=== PATIENT | female | born 1955 | race Caucasian/White ===

== ENCOUNTER 2020-03-01 10:49 | Emergency (ER) | payer MEDICAID, MEDICARE ==
[~2020-03-01] VITALS: Ht 170.2 cm; Wt 59.1 kg
[2020-03-01] MEDS ORDERED: CALC-1038 PO (10:56)
[2020-03-01] MEDS ORDERED: BENA5TAB26 PO (10:56)
[2020-03-01] MEDS ORDERED: LEVO88TA4 PO (10:56)
[2020-03-01] MEDS ORDERED: INSU100V12 SQ (10:57)
[2020-03-01] MEDS ORDERED: INSU100V SQ (10:57)
[2020-03-01] MEDS ORDERED: CHOL500043 PO (10:59)
[2020-03-01] MEDS ORDERED: SODIUM CHLORIDE 0.9% 100 ML ONE (11:01)
[2020-03-01] MEDS ORDERED: IOVERSOL 320 MG/ML 100 ML VIAL ONE (11:01)
[2020-03-01] MEDS ORDERED: ONDANSETRON HCL 4 MG/2 ML VIAL IVP ONE (11:30)
[2020-03-01] MEDS ORDERED: SODIUM CHLORIDE 0.9% 1,000 ML IV ONE (11:30)
[2020-03-01 12:16] LABS: BASOPHILS % (AUTO) 0.6 % (0.0-2.0); EOSINOPHILS % (AUTO) 0.8 % (1.0-6.0); HEMATOCRIT 41.8 % (36-46); HEMOGLOBIN 13.8 g/dL (12.0-16.0); LYMPHOCYTES % (AUTO) 23.6 % (22.0-44.0); MEAN CORPUSCULAR HGB CONC 33.1 G/dL (31.0-37.0); MEAN CORPUSCULAR VOLUME 91 fL (80-100); MONOCYTES # (AUTO) 0.3 K/uL (0.1-1.0); MONOCYTES % (AUTO) 6.9 % (2.0-9.0); NEUTROPHILS # (AUTO) 2.7 K/uL (1.8-7.7); NEUTROPHILS % (AUTO) 68.1 % (40.0-70.0); PLATELET COUNT (AUTO) 254 K/uL (150-450); RED CELL DISTRIBUTION WIDTH 12.4 % (11.5-14.5)
[2020-03-01 12:26] LABS: ANION GAP 8 mmol/L (8-16); CALCIUM, TOTAL 8.7 mg/dL (8.8-10.5); CARBON DIOXIDE 29 mmol/L (22-29); CHLORIDE 92 mmol/L (98-107); CREATININE 0.74 mg/dL (0.60-1.30); GLOMERULAR FILTR. RATE CALC > 60 mL/min (>60); GLUCOSE,RANDOM 224 mg/dL (70-110); SODIUM SERUM 129 mmol/L (136-145); UREA NITROGEN, BLOOD 22 mg/dL (7-18)
[2020-03-01 12:27] LABS: PROTHROMBIN TIME 10.7 SEC (9.4-11.6)
[2020-03-01 12:32] LABS: ALANINE AMINOTRANSFERASE 22 U/L (12-78); ALBUMIN 3.6 g/dL (3.4-5.0); ALKALINE PHOSPHATASE 37 U/L (46-116); ASPARTATE AMINOTRANSFERASE 20 U/L (15-37); BILIRUBIN,TOTAL 0.4 mg/dL (0.1-1.0); LIPASE 111 U/L (73-393); TOTAL PROTEIN, SERUM 6.9 g/dL (6.4-8.2)
[2020-03-01 12:56] LABS: APPEARANCE,URINE CLEAR (CLEAR); BILIRUBIN,URINE NEGATIVE (NEGATIVE); GLUCOSE, URINE (UA) NEGATIVE (NEGATIVE); KETONES,URINE NEGATIVE (NEGATIVE); LEUKOCYTE ESTERASE ,URINE NEGATIVE (NEGATIVE); NITRATE,URINE NEGATIVE (NEGATIVE); OCCULT BLOOD,URINE NEGATIVE (NEGATIVE); PROTEIN,URINE NEGATIVE (NEGATIVE); UROBILINOGEN,URINE 0.2 mg/dL (<=1.0)
[2020-03-01 14:36] VITALS: BP 154/91
== END 2020-03-01 15:06 | disposition home or self-care (01) ==
LOC: EMS 10:50
DX: K59.00 Constipation, unspecified (principal); R11.2 Nausea with vomiting, unspecified; E10.9 Type 1 diabetes mellitus without complications; E78.00 Pure hypercholesterolemia, unspecified; I10 Essential (primary) hypertension; Z90.710 Acquired absence of both cervix and uterus; Z79.4 Long term (current) use of insulin
CPT/HCPCS: 36415; 71045; 74177; 80053; 81003; 82962; 83690; 84484; 85025; 85610; 93005; 96361; 96374; 99285; J2405; J7030; J7050; Q9967

== ENCOUNTER 2022-06-25 10:34 | Emergency (ER) | payer MEDICARE, OTHER ==
[~2022-06-25] VITALS: Ht 162.6 cm; Wt 50.0 kg
[~2022-06-25 10:34] MED LIST: BENA40TA92 PO; CALC-1038 PO; CHOL500043 PO; CITA-144 PO; CLON0.2T2 PO; EZET10TA57 PO; INSLAN SQ; INSU100C6 SQ; LEVO88TA7 PO; LORA-999 PO
[2022-06-25] MEDS ORDERED: DIVA-80 PO (10:58)
[2022-06-25] MEDS ORDERED: INSU100V37 SQ (10:58)
[2022-06-25] MEDS ORDERED: RISP1TAB48 PO (10:58)
[2022-06-25] MEDS ORDERED: DIVA-85 PO (10:58)
[2022-06-25] MEDS ORDERED: CHL25 PO (10:58)
[2022-06-25] MEDS ORDERED: LEVO100 PO (10:58)
[2022-06-25] MEDS ORDERED: CHOL25TA4 PO (10:58)
[2022-06-25] MEDS ORDERED: SODIUM CHLORIDE 0.9% 1,000 ML IV ONE (11:00)
[2022-06-25 12:35] LABS: BASOPHILS % (AUTO) 0.2 % (0.0-2.0); EOSINOPHILS % (AUTO) 0 % (1.0-6.0); HEMATOCRIT 38.2 % (36-46); HEMOGLOBIN 13.2 g/dL (12.0-16.0); LYMPHOCYTES # (AUTO) 0.2 K/uL (1.0-4.8); LYMPHOCYTES % (AUTO) 2.4 % (22.0-44.0); MEAN CORPUSCULAR HEMOGLOBIN 29.8 pg (26.0-34.0); MEAN CORPUSCULAR HGB CONC 34.5 G/dL (31.0-37.0); MEAN CORPUSCULAR VOLUME 86 fL (80-100); MONOCYTES % (AUTO) 11.5 % (2.0-9.0); NEUTROPHILS # (AUTO) 7.1 K/uL (1.8-7.7); PLATELET COUNT (AUTO) 159 K/uL (150-450); RED BLOOD CELL COUNT(AUTO) 4.43 MIL/uL (4.00-5.20); RED CELL DISTRIBUTION WIDTH 12.4 % (11.5-14.5)
[2022-06-25 12:39] LABS: NEUTROPHILS % (AUTO) 85.9 % (40.0-70.0)
[2022-06-25 12:47] LABS: ANION GAP 10 mmol/L (8-16); CALCIUM, TOTAL 8.4 mg/dL (8.8-10.5); CARBON DIOXIDE 30 mmol/L (22-29); CHLORIDE 94 mmol/L (98-107); CREATININE 0.83 mg/dL (0.60-1.30); GLUCOSE,RANDOM 257 mg/dL (70-110); POTASSIUM 3.9 mmol/L (3.5-5.1); SODIUM SERUM 134 mmol/L (136-145); UREA NITROGEN, BLOOD 19 mg/dL (7-18)
[2022-06-25 12:48] LABS: GLOMERULAR FILTR. RATE CALC > 60 mL/min (>60)
[2022-06-25 12:50] LABS: PROTHROMBIN TIME 10.4 SEC (9.4-11.6)
[2022-06-25 12:59] LABS: ALANINE AMINOTRANSFERASE 13 U/L (12-78); ALBUMIN 3.1 g/dL (3.4-5.0); ALKALINE PHOSPHATASE 52 U/L (46-116); ASPARTATE AMINOTRANSFERASE 13 U/L (15-37); BILIRUBIN,TOTAL 0.4 mg/dL (0.1-1.0); CREATINE KINASE, TOTAL ONLY 56 U/L (26-192); TOTAL PROTEIN, SERUM 6.7 g/dL (6.4-8.2)
[2022-06-25 13:00] LABS: B-TYPE NATRIURETIC PEPTIDE 147 pg/mL (0-100)
[2022-06-25 17:37] LABS: GLUCOSE,POINT OF CARE 251 MG/DL (70-110)
[2022-06-25] MEDS ORDERED: SODIUM CHLORIDE 0.9% 100 ML ONE (19:02)
[2022-06-25] MEDS ORDERED: IOHEXOL 350 MG/ML 100 ML VIAL ONE (19:02)
[2022-06-25 20:03] VITALS: BP 133/76
== END 2022-06-26 06:32 | disposition home or self-care (01) ==
LOC: EMS 10:34
DX: R07.89 Other chest pain (principal); E11.65 Type 2 diabetes mellitus with hyperglycemia; F25.9 Schizoaffective disorder, unspecified; I10 Essential (primary) hypertension; E03.9 Hypothyroidism, unspecified; E11.9 Type 2 diabetes mellitus without complications; E78.00 Pure hypercholesterolemia, unspecified; Z79.899 Other long term (current) drug therapy
CPT/HCPCS: 99285; 96360; 71275; 71045; 80053; 82550; 82962; 83880; 84484; 85025; 85379; 85610; 85730; 36415; 74019; 93005; Q9967; J7050

== ENCOUNTER 2022-11-29 13:40 | Inpatient (IN) | payer MEDICARE, OTHER ==
[~2022-11-29] VITALS: Ht 170.2 cm; Wt 65.6 kg
[~2022-11-29 13:40] MED LIST changes: +CHL25 PO; +CHOL25TA4 PO; -CHOL500043 PO; -CITA-144 PO; +DIVA-80 PO; +DIVA-85 PO; -INSLAN SQ; +INSU100V37 SQ; +LEVO100 PO; -LEVO88TA7 PO; -LORA-999 PO; +RISP1TAB48 PO
[2022-11-29 15:17] LABS: PROTHROMBIN TIME 10.9 SEC (9.4-11.6)
[2022-11-29 15:26] LABS: BASOPHILS % (AUTO) 0.4 % (0.0-2.0); EOSINOPHILS % (AUTO) 0.1 % (1.0-6.0); HEMATOCRIT 44.7 % (36-46); LYMPHOCYTES # (AUTO) 0.8 K/uL (1.0-4.8); LYMPHOCYTES % (AUTO) 10.8 % (22.0-44.0); MEAN CORPUSCULAR HGB CONC 33.5 G/dL (31.0-37.0); MEAN CORPUSCULAR VOLUME 90 fL (80-100); MONOCYTES % (AUTO) 12.5 % (2.0-9.0); NEUTROPHILS # (AUTO) 5.9 K/uL (1.8-7.7); NEUTROPHILS % (AUTO) 76.2 % (40.0-70.0); PLATELET COUNT (AUTO) 138 K/uL (150-450); RED BLOOD CELL COUNT(AUTO) 4.99 MIL/uL (4.00-5.20); RED CELL DISTRIBUTION WIDTH 13.5 % (11.5-14.5)
[2022-11-29 15:47] LABS: ALBUMIN 3.6 g/dL (3.4-5.0); BILIRUBIN,TOTAL 0.5 mg/dL (0.1-1.0); CALCIUM, TOTAL 9.1 mg/dL (8.8-10.5); CREATININE 1.1 mg/dL (0.60-1.30); TOTAL PROTEIN, SERUM 7.8 g/dL (6.4-8.2)
[2022-11-29 15:51] LABS: POTASSIUM 2.9 mmol/L (3.5-5.1)
[2022-11-29] MEDS ORDERED: SODIUM CHLORIDE 0.9% 1,000 ML IV ONE ×2 (16:00→16:30)
[2022-11-29] MEDS ORDERED: POTASSIUM CHLORIDE 20 MEQ ER TABLET PO ONE (16:00)
[2022-11-29 16:01] LABS: APPEARANCE,URINE CLEAR (CLEAR); BILIRUBIN,URINE NEGATIVE (NEGATIVE); GLUCOSE, URINE (UA) >=1000 mg/dL (NEGATIVE); KETONES,URINE 40-60 mg/dL (NEGATIVE); LEUKOCYTE ESTERASE ,URINE NEGATIVE (NEGATIVE); NITRATE,URINE NEGATIVE (NEGATIVE); OCCULT BLOOD,URINE NEGATIVE (NEGATIVE); PH,URINE 6.5 (5.0-8.0); PROTEIN,URINE NEGATIVE (NEGATIVE); SPECIFIC GRAVITIY, URINE 1.016 (1.003-1.030); UROBILINOGEN,URINE <=1.0 mg/dL (<=1.0)
[2022-11-29 16:11] LABS: BACTERIA,URINE None Seen /HPF (None Seen); RBC,URINE 0-2 /HPF (0-2); SQUAMOUS EPITHELIAL CELL,UR Few /LPF (None Seen); WBC,URINE 0-2 /HPF (0-5)
[2022-11-29] MEDS ORDERED: HYDROCODONE/ACETAMINOPHEN 5-325 MG TABLET PO PRN (16:30)
[2022-11-29] MEDS ORDERED: ACETAMINOPHEN 325 MG TABLET PO PRN ×2 (16:30)
[2022-11-29] MEDS ORDERED: BISACODYL 10 MG RECTAL RECTAL SUPPOSITORY PR PRN (16:30)
[2022-11-29] MEDS ORDERED: MAGNESIUM SULFATE 2 GM/WATER 50 ML IV PRN (16:30)
[2022-11-29] MEDS ORDERED: POTASSIUM CHL 10 MEQ/WATER 50 ML IV PRN (16:30)
[2022-11-29] MEDS ORDERED: MAGNESIUM SULFATE 4 GM/WATER 100 ML IV PRN (16:30)
[2022-11-29] MEDS ORDERED: MAGNESIUM HYDROXIDE SUSPENSION 30 ML UDCUP PO PRN (16:30)
[2022-11-29] MEDS ORDERED: ONDANSETRON HCL 4 MG/2 ML VIAL IVP PRN (16:30)
[2022-11-29] MEDS ORDERED: MORPHINE SULFATE 2 MG/ML SYRINGE IVP PRN (16:30)
[2022-11-29] MEDS ORDERED: ZOLPIDEM TARTRATE 5 MG TABLET PO PRN (16:30)
[2022-11-29] MEDS ORDERED: MAGNESIUM OXIDE 400 MG TABLET PO PRN (16:30)
[2022-11-29] MEDS ORDERED: POTASSIUM CHLORIDE 20 MEQ ER TABLET PO PRN (16:30)
[2022-11-29] MEDS ORDERED: CHLO25TA3 PO (16:40)
[2022-11-29] MEDS ORDERED: CALC-916 PO (16:40)
[2022-11-29] MEDS ORDERED: DEXTROSE 50%-WATER 25 GM/50 ML SYRINGE IVP PRN (16:45)
[2022-11-29 16:57] LABS: COVID AG,FIA SOURCE NASOPHARYNGEAL
[2022-11-29] MEDS: DOCUSATE SODIUM 100 MG CAPSULE PO SCH (21:00)
[2022-11-29 21:20] VITALS: BP 150/90
[2022-11-29] MEDS: CloNIDine HCL 0.2 MG TABLET PO SCH (21:37)
[2022-11-29] MEDS: RisperiDONE 1 MG TABLET PO SCH (21:37)
[2022-11-29] MEDS: INSULIN LISPRO 100 UNITS/ML SQ PRN (21:38)
[2022-11-29] MEDS ORDERED: PNEUMOCOCCAL VACCINE POLYVALENT 0.5 ML VIAL [PPSV23] IM. ONE (23:00)
[2022-11-30 00:16] LABS: GLUCOMETER DEV NAME(LOC) 5S.2B; GLUCOSE,POINT OF CARE 292 MG/DL (70-110)
[2022-11-30] MEDS: HEPARIN SODIUM,PORCINE 5,000 UNITS/ML VIAL SQ SCH ×4 (00:52→23:47)
[2022-11-30 01:05] VITALS: BP 126/80
[2022-11-30 04:12] VITALS: BP 135/67
[2022-11-30] MEDS: INSULIN LISPRO 100 UNITS/ML SQ PRN ×4 (06:25→20:52)
[2022-11-30 06:35] LABS: CALCIUM, TOTAL 8.8 mg/dL (8.8-10.5); CREATININE 1.06 mg/dL (0.60-1.30); POTASSIUM 4.3 mmol/L (3.5-5.1)
[2022-11-30 07:03] LABS: EOSINOPHILS % (AUTO) 0.1 % (1.0-6.0); HEMATOCRIT 44.6 % (36-46); HEMOGLOBIN 15.2 g/dL (12.0-16.0); LYMPHOCYTES # (AUTO) 0.2 K/uL (1.0-4.8); LYMPHOCYTES % (AUTO) 1.7 % (22.0-44.0); MEAN CORPUSCULAR VOLUME 88 fL (80-100); MONOCYTES # (AUTO) 0.8 K/uL (0.1-1.0); MONOCYTES % (AUTO) 8.2 % (2.0-9.0); NEUTROPHILS # (AUTO) 9.2 K/uL (1.8-7.7); PLATELET COUNT (AUTO) 158 K/uL (150-450); RED BLOOD CELL COUNT(AUTO) 5.05 MIL/uL (4.00-5.20); RED CELL DISTRIBUTION WIDTH 13.5 % (11.5-14.5)
[2022-11-30] MEDS: LEVOTHYROXINE SODIUM 100 MCG TABLET PO SCH (07:12)
[2022-11-30 07:34] VITALS: BP 107/71
[2022-11-30] MEDS: CALCIUM CARBONATE 500 MG TABLET PO SCH (08:50)
[2022-11-30] MEDS: PANTOPRAZOLE SODIUM 40 MG DR TABLET PO SCH (08:51)
[2022-11-30] MEDS: DOCUSATE SODIUM 100 MG CAPSULE PO SCH ×2 (08:52→21:00)
[2022-11-30] MEDS: CloNIDine HCL 0.2 MG TABLET PO SCH ×3 (08:52→20:52)
[2022-11-30] MEDS: EZETIMIBE 10 MG TABLET PO SCH (08:52)
[2022-11-30] MEDS: CHOLECALCIFEROL (VIT D3) 1,000 UNITS [25 MCG] TABLET PO SCH (08:53)
[2022-11-30] MEDS: DIVALPROEX SODIUM 250 MG ER TABLET PO SCH (08:59)
[2022-11-30] MEDS ORDERED: SODIUM CHLORIDE 0.9% 500 ML IV ONE (10:15)
[2022-11-30 11:15] VITALS: BP 117/54
[2022-11-30 11:53] LABS: MAGNESIUM 1.5 mg/dL (1.80-2.40)
[2022-11-30] MEDS: DIVALPROEX SODIUM 500 MG ER TABLET PO SCH (12:13)
[2022-11-30 14:48] VITALS: BP 121/88
[2022-11-30 20:02] VITALS: BP 151/52
[2022-11-30 20:41] LABS: GLUCOMETER DEV NAME(LOC) 5N.1C; GLUCOSE,POINT OF CARE 232 MG/DL (70-110)
[2022-11-30] MEDS: RisperiDONE 1 MG TABLET PO SCH (20:52)
[2022-11-30 20:57] LABS: GLUCOMETER DEV NAME(LOC) 5S.1B; GLUCOSE,POINT OF CARE 238 MG/DL (70-110)
[2022-11-30 20:57] LABS: GLUCOMETER DEV NAME(LOC) 5S.1B; GLUCOSE,POINT OF CARE 341 MG/DL (70-110)
[2022-12-01] VITALS (8 sets, daily range): BP systolic 105–148; BP diastolic 47–77
[2022-12-01] MEDS: INSULIN LISPRO 100 UNITS/ML SQ PRN ×4 (06:11→20:08)
[2022-12-01] MEDS: LEVOTHYROXINE SODIUM 100 MCG TABLET PO SCH (06:11)
[2022-12-01 07:05] LABS: BASOPHILS % (AUTO) 0.3 % (0.0-2.0); EOSINOPHILS % (AUTO) 0 % (1.0-6.0); HEMATOCRIT 38.7 % (36-46); HEMOGLOBIN 13.2 g/dL (12.0-16.0); LYMPHOCYTES # (AUTO) 0.6 K/uL (1.0-4.8); LYMPHOCYTES % (AUTO) 6.1 % (22.0-44.0); MEAN CORPUSCULAR HEMOGLOBIN 30.3 pg (26.0-34.0); MEAN CORPUSCULAR HGB CONC 34.1 G/dL (31.0-37.0); MEAN CORPUSCULAR VOLUME 89 fL (80-100); MONOCYTES # (AUTO) 1.6 K/uL (0.1-1.0); MONOCYTES % (AUTO) 16.4 % (2.0-9.0); NEUTROPHILS # (AUTO) 7.4 K/uL (1.8-7.7); NEUTROPHILS % (AUTO) 77.2 % (40.0-70.0); PLATELET COUNT (AUTO) 153 K/uL (150-450); RED BLOOD CELL COUNT(AUTO) 4.35 MIL/uL (4.00-5.20); RED CELL DISTRIBUTION WIDTH 14.2 % (11.5-14.5)
[2022-12-01 07:19] LABS: CALCIUM, TOTAL 8.2 mg/dL (8.8-10.5); CREATININE 1.11 mg/dL (0.60-1.30); MAGNESIUM 1.9 mg/dL (1.80-2.40); POTASSIUM 3.8 mmol/L (3.5-5.1)
[2022-12-01] MEDS: DOCUSATE SODIUM 100 MG CAPSULE PO SCH ×2 (09:00→20:07)
[2022-12-01] MEDS: CloNIDine HCL 0.2 MG TABLET PO SCH ×2 (09:00→20:07)
[2022-12-01] MEDS: HEPARIN SODIUM,PORCINE 5,000 UNITS/ML VIAL SQ SCH ×2 (09:06→17:16)
[2022-12-01] MEDS: DIVALPROEX SODIUM 250 MG ER TABLET PO SCH (09:06)
[2022-12-01] MEDS: CALCIUM CARBONATE 500 MG TABLET PO SCH (09:07)
[2022-12-01] MEDS: EZETIMIBE 10 MG TABLET PO SCH (09:07)
[2022-12-01] MEDS: CHOLECALCIFEROL (VIT D3) 1,000 UNITS [25 MCG] TABLET PO SCH (09:08)
[2022-12-01] MEDS: PANTOPRAZOLE SODIUM 40 MG DR TABLET PO SCH (09:10)
[2022-12-01] MEDS ORDERED: SODIUM CHLORIDE 0.9% 1,000 ML IV ONE (10:15)
[2022-12-01 10:51] LABS: THYROID STIMULATING HORMONE 0.91 uIU/mL (0.36-3.74)
[2022-12-01 11:11] LABS: GLUCOMETER DEV NAME(LOC) 5S.1B; GLUCOSE,POINT OF CARE 303 MG/DL (70-110)
[2022-12-01 12:31] LABS: GLUCOMETER DEV NAME(LOC) 5S.1B; GLUCOSE,POINT OF CARE 326 MG/DL (70-110)
[2022-12-01] MEDS: DIVALPROEX SODIUM 500 MG ER TABLET PO SCH (13:46)
[2022-12-01] MEDS: MetFORMIN HCL 500 MG TABLET PO SCH (17:16)
[2022-12-01 19:56] LABS: GLUCOMETER DEV NAME(LOC) 5S.1B; GLUCOSE,POINT OF CARE 264 MG/DL (70-110)
[2022-12-01] MEDS: RisperiDONE 1 MG TABLET PO SCH (20:07)
[2022-12-02] VITALS: BP 139/79
[2022-12-02] MEDS: HEPARIN SODIUM,PORCINE 5,000 UNITS/ML VIAL SQ SCH ×4 (00:23→23:30)
[2022-12-02 04:41] VITALS: BP 136/86
[2022-12-02] MEDS: LEVOTHYROXINE SODIUM 100 MCG TABLET PO SCH (06:11)
[2022-12-02 06:15] LABS: BASOPHILS % (AUTO) 0.2 % (0.0-2.0); EOSINOPHILS % (AUTO) 0.1 % (1.0-6.0); HEMATOCRIT 34.4 % (36-46); HEMOGLOBIN 11.9 g/dL (12.0-16.0); LYMPHOCYTES # (AUTO) 1.1 K/uL (1.0-4.8); LYMPHOCYTES % (AUTO) 13.3 % (22.0-44.0); MEAN CORPUSCULAR HEMOGLOBIN 30.7 pg (26.0-34.0); MEAN CORPUSCULAR HGB CONC 34.5 G/dL (31.0-37.0); MEAN CORPUSCULAR VOLUME 89 fL (80-100); MONOCYTES # (AUTO) 1.5 K/uL (0.1-1.0); MONOCYTES % (AUTO) 18.5 % (2.0-9.0); NEUTROPHILS # (AUTO) 5.4 K/uL (1.8-7.7); NEUTROPHILS % (AUTO) 67.9 % (40.0-70.0); PLATELET COUNT (AUTO) 141 K/uL (150-450); RED BLOOD CELL COUNT(AUTO) 3.87 MIL/uL (4.00-5.20); RED CELL DISTRIBUTION WIDTH 13.9 % (11.5-14.5)
[2022-12-02] MEDS: INSULIN LISPRO 100 UNITS/ML SQ PRN ×4 (06:20→20:39)
[2022-12-02 07:07] LABS: CALCIUM, TOTAL 7.8 mg/dL (8.8-10.5); CREATININE 1.08 mg/dL (0.60-1.30); POTASSIUM 3.5 mmol/L (3.5-5.1)
[2022-12-02 08:03] VITALS: BP 126/67
[2022-12-02 08:18] LABS: PHOSPHORUS 2.1 mg/dL (2.5-4.9)
[2022-12-02 09:01] LABS: GLUCOMETER DEV NAME(LOC) 5N.1C; GLUCOSE,POINT OF CARE 213 MG/DL (70-110)
[2022-12-02] MEDS: EZETIMIBE 10 MG TABLET PO SCH (09:58)
[2022-12-02] MEDS: CHOLECALCIFEROL (VIT D3) 1,000 UNITS [25 MCG] TABLET PO SCH (09:58)
[2022-12-02] MEDS: CALCIUM CARBONATE 500 MG TABLET PO SCH (09:58)
[2022-12-02] MEDS: MetFORMIN HCL 500 MG TABLET PO SCH ×2 (09:58→17:49)
[2022-12-02] MEDS: CloNIDine HCL 0.2 MG TABLET PO SCH ×2 (09:59→20:32)
[2022-12-02] MEDS: PANTOPRAZOLE SODIUM 40 MG DR TABLET PO SCH (09:59)
[2022-12-02] MEDS: DOCUSATE SODIUM 100 MG CAPSULE PO SCH ×2 (09:59→20:32)
[2022-12-02] MEDS: DIVALPROEX SODIUM 250 MG ER TABLET PO SCH (09:59)
[2022-12-02 10:53] VITALS: BP 135/71
[2022-12-02] MEDS: DIVALPROEX SODIUM 500 MG ER TABLET PO SCH (12:53)
[2022-12-02 15:12] VITALS: BP 119/69
[2022-12-02 20:13] VITALS: BP 136/74
[2022-12-02] MEDS: RisperiDONE 1 MG TABLET PO SCH (20:32)
[2022-12-03] VITALS (8 sets, daily range): BP systolic 120–148; BP diastolic 56–97
[2022-12-03] MEDS: LEVOTHYROXINE SODIUM 100 MCG TABLET PO SCH (06:26)
[2022-12-03] MEDS: INSULIN LISPRO 100 UNITS/ML SQ PRN ×4 (06:29→20:04)
[2022-12-03] MEDS: DOCUSATE SODIUM 100 MG CAPSULE PO SCH ×2 (09:00→20:03)
[2022-12-03] MEDS: HEPARIN SODIUM,PORCINE 5,000 UNITS/ML VIAL SQ SCH ×2 (09:38→17:58)
[2022-12-03] MEDS: EZETIMIBE 10 MG TABLET PO SCH (09:38)
[2022-12-03] MEDS: CALCIUM CARBONATE 500 MG TABLET PO SCH (09:38)
[2022-12-03] MEDS: PANTOPRAZOLE SODIUM 40 MG DR TABLET PO SCH (09:38)
[2022-12-03] MEDS: DIVALPROEX SODIUM 250 MG ER TABLET PO SCH (09:39)
[2022-12-03] MEDS: MetFORMIN HCL 500 MG TABLET PO SCH ×2 (09:39→17:58)
[2022-12-03] MEDS: CloNIDine HCL 0.2 MG TABLET PO SCH ×2 (09:39→20:03)
[2022-12-03] MEDS: CARVEDILOL 6.25 MG TABLET PO SCH ×2 (09:39→20:03)
[2022-12-03] MEDS: CHOLECALCIFEROL (VIT D3) 1,000 UNITS [25 MCG] TABLET PO SCH (09:39)
[2022-12-03] MEDS: DIVALPROEX SODIUM 500 MG ER TABLET PO SCH (12:00)
[2022-12-03 13:06] LABS: GLUCOMETER DEV NAME(LOC) 5S.1B; GLUCOSE,POINT OF CARE 324 MG/DL (70-110)
[2022-12-03] MEDS: RisperiDONE 1 MG TABLET PO SCH (20:03)
[2022-12-03 20:17] LABS: GLUCOMETER DEV NAME(LOC) 5N.1C; GLUCOSE,POINT OF CARE 308 MG/DL (70-110)
[2022-12-03 20:17] LABS: GLUCOMETER DEV NAME(LOC) 5N.1C; GLUCOSE,POINT OF CARE 283 MG/DL (70-110)
[2022-12-03 20:17] LABS: GLUCOMETER DEV NAME(LOC) 5N.1C; GLUCOSE,POINT OF CARE 209 MG/DL (70-110)
[2022-12-03 20:17] LABS: GLUCOMETER DEV NAME(LOC) 5N.1C; GLUCOSE,POINT OF CARE 299 MG/DL (70-110)
[2022-12-04] MEDS: HEPARIN SODIUM,PORCINE 5,000 UNITS/ML VIAL SQ SCH ×3 (00:17→16:06)
[2022-12-04 01:22] LABS: GLUCOMETER DEV NAME(LOC) 5S.1B; GLUCOSE,POINT OF CARE 230 MG/DL (70-110)
[2022-12-04 04:05] VITALS: BP 135/75
[2022-12-04] MEDS: INSULIN LISPRO 100 UNITS/ML SQ PRN ×4 (06:18→21:04)
[2022-12-04 06:36] LABS: GLUCOMETER DEV NAME(LOC) 5N.1C; GLUCOSE,POINT OF CARE 268 MG/DL (70-110)
[2022-12-04] MEDS: LEVOTHYROXINE SODIUM 75 MCG TABLET PO SCH (07:07)
[2022-12-04 08:08] VITALS: BP 141/87
[2022-12-04] MEDS: EZETIMIBE 10 MG TABLET PO SCH (09:50)
[2022-12-04] MEDS: CloNIDine HCL 0.2 MG TABLET PO SCH ×2 (09:50→21:05)
[2022-12-04] MEDS: CALCIUM CARBONATE 500 MG TABLET PO SCH (09:51)
[2022-12-04] MEDS: PANTOPRAZOLE SODIUM 40 MG DR TABLET PO SCH (09:51)
[2022-12-04] MEDS: DIVALPROEX SODIUM 500 MG ER TABLET PO SCH (09:51)
[2022-12-04] MEDS: CHOLECALCIFEROL (VIT D3) 1,000 UNITS [25 MCG] TABLET PO SCH (09:52)
[2022-12-04] MEDS: DOCUSATE SODIUM 100 MG CAPSULE PO SCH ×2 (09:52→21:05)
[2022-12-04] MEDS: MetFORMIN HCL 500 MG TABLET PO SCH ×2 (09:52→18:28)
[2022-12-04] MEDS: CARVEDILOL 12.5 MG TABLET PO SCH ×2 (09:53→21:05)
[2022-12-04] MEDS: DIVALPROEX SODIUM 250 MG ER TABLET PO SCH (09:54)
[2022-12-04 11:18] VITALS: BP 140/73
[2022-12-04 14:45] VITALS: BP 139/75
[2022-12-04] MEDS: GlipiZIDE 5 MG TABLET PO SCH (18:27)
[2022-12-04 21:03] VITALS: BP 172/97
[2022-12-04] MEDS: RisperiDONE 1 MG TABLET PO SCH (21:05)
[2022-12-04 21:17] LABS: GLUCOMETER DEV NAME(LOC) 5N.1C; GLUCOSE,POINT OF CARE 167 MG/DL (70-110)
[2022-12-05 02:39] VITALS: BP 138/65
[2022-12-05 05:07] VITALS: BP 165/78
[2022-12-05 05:27] LABS: GLUCOMETER DEV NAME(LOC) 5S.1B; GLUCOSE,POINT OF CARE 247 MG/DL (70-110)
[2022-12-05] MEDS: INSULIN LISPRO 100 UNITS/ML SQ PRN ×4 (06:34→20:52)
[2022-12-05] MEDS: LEVOTHYROXINE SODIUM 75 MCG TABLET PO SCH (06:34)
[2022-12-05] MEDS: GlipiZIDE 5 MG TABLET PO SCH ×2 (06:34→16:34)
[2022-12-05] MEDS: ONDANSETRON HCL 4 MG/2 ML VIAL IVP PRN (06:40)
[2022-12-05 08:02] VITALS: BP 146/84
[2022-12-05] MEDS: DIVALPROEX SODIUM 250 MG ER TABLET PO SCH (09:38)
[2022-12-05] MEDS: CARVEDILOL 12.5 MG TABLET PO SCH ×2 (09:38→21:18)
[2022-12-05] MEDS: CloNIDine HCL 0.2 MG TABLET PO SCH ×2 (09:38→21:18)
[2022-12-05] MEDS: HEPARIN SODIUM,PORCINE 5,000 UNITS/ML VIAL SQ SCH ×3 (09:38→16:33)
[2022-12-05] MEDS: DOCUSATE SODIUM 100 MG CAPSULE PO SCH ×2 (09:38→21:18)
[2022-12-05] MEDS: MetFORMIN HCL 500 MG TABLET PO SCH ×2 (09:38→17:52)
[2022-12-05] MEDS: CHOLECALCIFEROL (VIT D3) 1,000 UNITS [25 MCG] TABLET PO SCH (09:39)
[2022-12-05] MEDS: CALCIUM CARBONATE 500 MG TABLET PO SCH (09:39)
[2022-12-05] MEDS: EZETIMIBE 10 MG TABLET PO SCH (09:39)
[2022-12-05] MEDS: PANTOPRAZOLE SODIUM 40 MG DR TABLET PO SCH (09:39)
[2022-12-05 11:59] VITALS: BP 139/62
[2022-12-05] MEDS: DIVALPROEX SODIUM 500 MG ER TABLET PO SCH (13:26)
[2022-12-05 15:56] VITALS: BP 125/59
[2022-12-05 16:58] LABS: CALCIUM, TOTAL 8.1 mg/dL (8.8-10.5); CREATININE 1.21 mg/dL (0.60-1.30); POTASSIUM 4.2 mmol/L (3.5-5.1)
[2022-12-05 18:59] LABS: GLUCOMETER DEV NAME(LOC) 5N.1C; GLUCOSE,POINT OF CARE 249 MG/DL (70-110)
[2022-12-05 19:45] VITALS: BP 113/52
[2022-12-05 20:28] LABS: GLUCOMETER DEV NAME(LOC) 5S.2B; GLUCOSE,POINT OF CARE 207 MG/DL (70-110)
[2022-12-05] MEDS: RisperiDONE 1 MG TABLET PO SCH (21:08)
[2022-12-06] VITALS: BP 117/59
[2022-12-06] MEDS: HEPARIN SODIUM,PORCINE 5,000 UNITS/ML VIAL SQ SCH ×3 (00:49→15:05)
[2022-12-06 06:02] VITALS: BP 141/65
[2022-12-06] MEDS: ONDANSETRON HCL 4 MG/2 ML VIAL IVP PRN (06:57)
[2022-12-06] MEDS: LEVOTHYROXINE SODIUM 75 MCG TABLET PO SCH (06:57)
[2022-12-06] MEDS: GlipiZIDE 5 MG TABLET PO SCH ×2 (06:57→17:30)
[2022-12-06] MEDS: INSULIN LISPRO 100 UNITS/ML SQ PRN ×4 (07:32→20:50)
[2022-12-06] MEDS: MetFORMIN HCL 500 MG TABLET PO SCH ×2 (08:00→17:31)
[2022-12-06 08:20] VITALS: BP 98/57
[2022-12-06] MEDS: DOCUSATE SODIUM 100 MG CAPSULE PO SCH ×2 (10:25→20:39)
[2022-12-06] MEDS: DIVALPROEX SODIUM 250 MG ER TABLET PO SCH (10:25)
[2022-12-06] MEDS: CloNIDine HCL 0.2 MG TABLET PO SCH ×2 (10:25→20:37)
[2022-12-06] MEDS: EZETIMIBE 10 MG TABLET PO SCH (10:25)
[2022-12-06] MEDS: CHOLECALCIFEROL (VIT D3) 1,000 UNITS [25 MCG] TABLET PO SCH (10:25)
[2022-12-06] MEDS: CARVEDILOL 12.5 MG TABLET PO SCH ×2 (10:25→20:37)
[2022-12-06] MEDS: PANTOPRAZOLE SODIUM 40 MG DR TABLET PO SCH (10:25)
[2022-12-06] MEDS: CALCIUM CARBONATE 500 MG TABLET PO SCH (10:25)
[2022-12-06 11:43] VITALS: BP 96/60
[2022-12-06 11:58] LABS: GLUCOMETER DEV NAME(LOC) 5S.2B; GLUCOSE,POINT OF CARE 218 MG/DL (70-110)
[2022-12-06 11:58] LABS: GLUCOMETER DEV NAME(LOC) 5S.2B; GLUCOSE,POINT OF CARE 291 MG/DL (70-110)
[2022-12-06] MEDS: DIVALPROEX SODIUM 500 MG ER TABLET PO SCH (11:59)
[2022-12-06] MEDS ORDERED: SODIUM CHLORIDE 0.9% 500 ML IV ONE (14:00)
[2022-12-06 15:13] VITALS: BP 119/73
[2022-12-06] MEDS ORDERED: SODIUM CHLORIDE 1 GM TABLET PO SCH (16:00)
[2022-12-06 16:29] LABS: CALCIUM, TOTAL 8.4 mg/dL (8.8-10.5); CREATININE 1.37 mg/dL (0.60-1.30); POTASSIUM 4.4 mmol/L (3.5-5.1)
[2022-12-06] MEDS: MEGESTROL ACETATE 40 MG TABLET PO SCH (17:30)
[2022-12-06 20:23] LABS: GLUCOMETER DEV NAME(LOC) 5S.1B; GLUCOSE,POINT OF CARE 355 MG/DL (70-110)
[2022-12-06 20:23] LABS: GLUCOMETER DEV NAME(LOC) 5S.1B; GLUCOSE,POINT OF CARE 352 MG/DL (70-110)
[2022-12-06 20:24] VITALS: BP 144/87
[2022-12-06] MEDS ORDERED: SODIUM CHLORIDE 0.9% 1,000 ML IV ONE (20:30)
[2022-12-06] MEDS: RisperiDONE 1 MG TABLET PO SCH (20:37)
[2022-12-06] MEDS: SODIUM CHLORIDE 1 GM TABLET PO SCH (20:37)
[2022-12-07] MEDS: HEPARIN SODIUM,PORCINE 5,000 UNITS/ML VIAL SQ SCH ×3 (00:01→16:00)
[2022-12-07 00:06] VITALS: BP 114/62
[2022-12-07 04:58] VITALS: BP 159/70
[2022-12-07] MEDS: INSULIN LISPRO 100 UNITS/ML SQ PRN ×2 (05:55→12:25)
[2022-12-07] MEDS ORDERED: GlipiZIDE 5 MG TABLET PO SCH (06:30)
[2022-12-07 06:40] LABS: CALCIUM, TOTAL 8.5 mg/dL (8.8-10.5); CREATININE 1.28 mg/dL (0.60-1.30); POTASSIUM 4.8 mmol/L (3.5-5.1)
[2022-12-07] MEDS: LEVOTHYROXINE SODIUM 75 MCG TABLET PO SCH (07:01)
[2022-12-07 07:08] LABS: GLUCOMETER DEV NAME(LOC) 5S.2B; GLUCOSE,POINT OF CARE 310 MG/DL (70-110)
[2022-12-07 07:47] VITALS: BP 113/67
[2022-12-07] MEDS: DOCUSATE SODIUM 100 MG CAPSULE PO SCH (08:35)
[2022-12-07] MEDS: SODIUM CHLORIDE 1 GM TABLET PO SCH ×3 (08:35→16:00)
[2022-12-07] MEDS: CARVEDILOL 12.5 MG TABLET PO SCH (08:36)
[2022-12-07] MEDS: MetFORMIN HCL 500 MG TABLET PO SCH (08:36)
[2022-12-07] MEDS: CHOLECALCIFEROL (VIT D3) 1,000 UNITS [25 MCG] TABLET PO SCH (08:37)
[2022-12-07] MEDS: EZETIMIBE 10 MG TABLET PO SCH (08:37)
[2022-12-07] MEDS: PANTOPRAZOLE SODIUM 40 MG DR TABLET PO SCH (08:37)
[2022-12-07] MEDS: CloNIDine HCL 0.2 MG TABLET PO SCH ×4 (08:38→15:00)
[2022-12-07] MEDS: CALCIUM CARBONATE 500 MG TABLET PO SCH (08:38)
[2022-12-07] MEDS: DIVALPROEX SODIUM 250 MG ER TABLET PO SCH (08:38)
[2022-12-07] MEDS: MEGESTROL ACETATE 40 MG TABLET PO SCH (08:39)
[2022-12-07 11:20] VITALS: BP 126/64
[2022-12-07] MEDS ORDERED: GLIP5TAB11 PO (12:23)
[2022-12-07] MEDS ORDERED: NACL1 PO (12:23)
[2022-12-07] MEDS ORDERED: MEGE40TA8 PO (12:23)
[2022-12-07] MEDS ORDERED: METF-1211 PO (12:23)
[2022-12-07] MEDS ORDERED: CARV12 PO (12:23)
[2022-12-07] MEDS: DIVALPROEX SODIUM 500 MG ER TABLET PO SCH (12:25)
== END 2022-12-07 15:30 | disposition home or self-care (01) | DRG 70 ==
LOC: EMS 13:48 → 5S 17:51
PROVIDERS: ADMIT Internal Medicine; ATTEND Internal Medicine
DX: G93.41 Metabolic encephalopathy (principal); E43 Unspecified severe protein-calorie malnutrition; E87.1 Hypo-osmolality and hyponatremia; E87.6 Hypokalemia; E11.65 Type 2 diabetes mellitus with hyperglycemia; E03.9 Hypothyroidism, unspecified; I10 Essential (primary) hypertension; E78.00 Pure hypercholesterolemia, unspecified; G20 Parkinson's disease; Z20.822 Contact with and (suspected) exposure to COVID-19; Z79.4 Long term (current) use of insulin; Z90.710 Acquired absence of both cervix and uterus; Z79.84 Long term (current) use of oral hypoglycemic drugs; Z79.899 Other long term (current) drug therapy; Z68.22 Body mass index [BMI] 22.0-22.9, adult
CPT/HCPCS: 71045; 80048; 80053; 80164; 81001; 82040; 82962; 83036; 83735; 83880; 84100; 84132; 84295; 84443; 84484; 85025; 85610; 85730; 87081; 93005; 93306; 97116; 97162; 97166; 97530; 97535; 99285; J1644; J2405; J3475; J7030; J7040; 36415-L1; 36415-TC